=== PATIENT | female | born 1980 | race Hispanic/Latino ===

== ENCOUNTER 2024-09-22 10:17 | Inpatient (IN) | payer OTHER ==
[~2024-09-22] VITALS: Ht 154.9 cm; Wt 97.2 kg
[2024-09-22 10:50] LABS: BASOPHILS % 0.3 % (0.0-1.0); EOSINOPHILS % 2.4 % (0.0-6.0); LYMPHOCYTES % 17.7 % (18.0-39.1); MONOCYTES % 7.2 % (4.4-11.3); NEUTROPHILS % 72.0 % (38.7-80.0); RED CELL DISTRIBUTION WIDTH 13.2 % (11.7-14.4)
[2024-09-22] MEDS: KETOROLAC TROMETHAMINE 30 MG/ML VIAL IV STA (10:52)
[2024-09-22] MEDS: SODIUM CHLORIDE 0.9% 1000ML 1,000 ML IV STA (10:52)
[2024-09-22] MEDS: ONDANSETRON HCL INJ 2MG/ML 2ML 2 MG/ML VIAL IV STA (10:52)
[2024-09-22 11:23] LABS: EST GLOMERULAR FILTRATION RATE 106 ML/MIN (>=60)
[2024-09-22 11:25] LABS: INR 2.36
[2024-09-22] MEDS ORDERED: IOPAMIDOL 370 MG/ML 100 ML INFUS..BTL INJ ONE (13:42)
[2024-09-22 15:53] VITALS: PULSE 88; RESP 18; O2SAT 98
[2024-09-22] MEDS: CEFTRIAXONE 2 GM in SODIUM CHLORIDE 0.9% 100 ML IV ONE (16:38)
[2024-09-22 16:59] VITALS: PULSE 81; RESP 16; TEMP 98.6
[2024-09-22] MEDS ORDERED: HYDRALAZINE HCL 20 MG/ML VIAL IV PRN (17:30)
[2024-09-22] MEDS ORDERED: BENZONATATE 100 MG CAP PO PRN (17:30)
[2024-09-22] MEDS ORDERED: DEXTROSE 50% SYRINGE 50 ML IV PRN (17:30)
[2024-09-22] MEDS ORDERED: LIDOCAINE 4% PATCH TP PRN (17:30)
[2024-09-22] MEDS ORDERED: ACETAMINOPHEN 325 MG TAB PO PRN (17:30)
[2024-09-22] MEDS ORDERED: ALBUTEROL/IPRATROPIUM 3 ML NEB NEB PRN (17:30)
[2024-09-22] MEDS ORDERED: DIPHENHYDRAMINE HCL 25 MG CAP PO PRN (17:30)
[2024-09-22] MEDS ORDERED: POTASSIUM CHLORIDE 20 MEQ TAB CR PO PRN (17:30)
[2024-09-22] MEDS ORDERED: SIMETHICONE 80 MG CHEW PO PRN (17:30)
[2024-09-22 17:40] VITALS: BP 123/62; PULSE 80; RESP 20; TEMP 98.1; O2SAT 98
[2024-09-22] MEDS: WARFARIN SOD 2 MG TAB PO ONE ×2 (17:54→18:05)
[2024-09-22] MEDS: Morphine 2mg Syringe 2 MG/ML SYR IV PRN (18:35)
[2024-09-22 18:52] VITALS: BP 123/62; PULSE 80; RESP 20; TEMP 98.1; O2SAT 98
[2024-09-22 20:00] VITALS: BP 113/65; PULSE 88; RESP 18; TEMP 98.2; O2SAT 98
[2024-09-22] MEDS: ONDANSETRON HCL INJ 2MG/ML 2ML 2 MG/ML VIAL IV PRN (23:11)
[2024-09-22] MEDS: MELATONIN 5 MG TABLET PO PRN (23:13)
[2024-09-23] VITALS (8 sets, daily range): BP systolic 107–131; BP diastolic 57–74; PULSE 77–90; RESP 18–20; TEMP 97.3–98.3; O2SAT 95–99
[2024-09-23] MEDS ORDERED: LISINOPRIL10 MG PO (02:14)
[2024-09-23] MEDS ORDERED: LANTUS 3ML100 UNITS/ SC (02:14)
[2024-09-23] MEDS ORDERED: OZEMPIC1 MG/0.71 SQ (02:14)
[2024-09-23] MEDS ORDERED: GLIPIZIDE5 MG PO (02:14)
[2024-09-23] MEDS ORDERED: HUMALOG100 UNIT/1 SQ (02:14)
[2024-09-23] MEDS ORDERED: METFORMIN HCL500 MG PO (02:14)
[2024-09-23] MEDS ORDERED: PLAQUENIL200 MG PO (02:14)
[2024-09-23] MEDS ORDERED: FENOFIBRATE134 MG PO (02:14)
[2024-09-23] MEDS ORDERED: ATORVASTATIN CA20 MG PO (02:14)
[2024-09-23] MEDS ORDERED: WARFARIN SODIUM6 MG PO (02:14)
[2024-09-23 07:37] LABS: BASOPHILS % 0.3 % (0.0-1.0); EOSINOPHILS % 3.1 % (0.0-6.0); LYMPHOCYTES % 16.2 % (18.0-39.1); MONOCYTES % 7.0 % (4.4-11.3); NEUTROPHILS % 73.0 % (38.7-80.0); RED CELL DISTRIBUTION WIDTH 13.1 % (11.7-14.4)
[2024-09-23 07:57] LABS: INR 2.67
[2024-09-23 08:04] LABS: EST GLOMERULAR FILTRATION RATE 112.0 ML/MIN (>=60)
[2024-09-23] MEDS: PANTOPRAZOLE SOD 40 MG TABEC PO SCH (08:45)
[2024-09-23] MEDS ORDERED: DEXTROSE 50% SYRINGE 50 ML IV PRN ×2 (14:00)
[2024-09-23] MEDS: WARFARIN SOD 3 MG TAB PO SCH (17:22)
[2024-09-23] MEDS: INSULIN LISPRO 100 UNIT/1 ML 3ML VIAL SQ SCH (17:23)
[2024-09-23] MEDS: TRAMADOL HCL 50 MG TAB PO PRN (23:44)
[2024-09-24 00:24] VITALS: BP 119/73; PULSE 85; RESP 18; TEMP 97.2; O2SAT 97
[2024-09-24 08:37] VITALS: BP 122/72; PULSE 84; RESP 20; TEMP 98; O2SAT 99
[2024-09-24 09:00] VITALS: BP 122/72; PULSE 84; RESP 20; TEMP 98; O2SAT 99
[2024-09-24] MEDS: FENOFIBRATE 145 MG TAB PO SCH (09:40)
[2024-09-24] MEDS: HYDROXYCHLOROQUINE SULFATE 200 MG TAB PO SCH (09:41)
[2024-09-24] MEDS: LISINOPRIL 10 MG TAB PO SCH (09:41)
[2024-09-24] MEDS: INSULIN GLARGINE 100 UNITS/ML VIAL SC SCH (09:43)
[2024-09-24] MEDS: CITRATE OF MAGNESIA 300ML BOTTLE PO ONE (11:58)
[2024-09-24] MEDS: DOCUSATE SODIUM 100 MG CAP PO ONE (11:58)
[2024-09-24 12:33] VITALS: BP 115/71; PULSE 80; RESP 19; TEMP 98.2; O2SAT 99
[2024-09-24 16:06] VITALS: BP 121/72; PULSE 84; RESP 20; TEMP 98; O2SAT 100
[2024-09-24 16:06] LABS: INR 2.38
[2024-09-24] MEDS: ONDANSETRON HCL INJ 2MG/ML 2ML 2 MG/ML VIAL IV PRN (17:40)
[2024-09-24] MEDS: WARFARIN SOD 3 MG TAB PO ONE (21:16)
[2024-09-25] MEDS ORDERED: WARFARIN SOD 3 MG TAB PO SCH (17:00)
== END 2024-09-24 21:27 | disposition home or self-care (01) | DRG 186 ==
LOC: ER 10:23 → ERHOLD 15:37 → MED/SURG2 17:29
PROVIDERS: ADMIT Internal Medicine; ATTEND Internal Medicine
DX: J90 Pleural effusion, not elsewhere classified (principal); I26.99 Other pulmonary embolism without acute cor pulmonale; J18.9 Pneumonia, unspecified organism; Z68.41 Body mass index [BMI] 40.0-44.9, adult; E66.9 Obesity, unspecified; E11.9 Type 2 diabetes mellitus without complications; I10 Essential (primary) hypertension; Z79.01 Long term (current) use of anticoagulants; Z79.4 Long term (current) use of insulin; Z79.84 Long term (current) use of oral hypoglycemic drugs; Z79.85 Long-term (current) use of injectable non-insulin antidiabetic drugs
CPT/HCPCS: 36415; 71045; 71260; 74470; 76604; 80053; 82550; 83735; 83880; 84484; 84702; 85025; 85379; 85610; 85730; 87040; 93005; 94799; 96372; 99252; 99284; J0696; J1815; J1885; J2270; J2405; J2470; J7030; J7050; Q9967